=== PATIENT | female | born 1985 | race African-American/Black ===

== ENCOUNTER 2018-11-17 10:21 | Outpatient (CLI) | payer MEDICAID ==
--- NOTE | 2018-11-17 10:45 | RAD ---
FEXAM: Chest PA and lateral: HISTORY: Cough. Weight loss. Achalasia. COMPARISON: none FINDINGS: There is an irregularly shaped nodular opacity overlying the right lower lung measuring up to 1.6 cm. Lung ames otherwise clear. Vascularity is normal. There is abnormal density in the right paratracheal region. This may be the result of the stated zuleima lasia although mass or adenopathy not excluded. Osseous structures are unremarkable. IMPRESSION: 1. Nodular opacity right lower lung 2. Abnormal density right paratracheal region Recommend further evaluation with chest CT
== END 2018-11-17 10:22 | disposition home or self-care (01) ==
LOC: BICRAD 10:21
PROVIDERS: ATTEND Physician Assistant Medical
DX: K22.0 Achalasia of cardia (principal); R63.4 Abnormal weight loss; R05 Cough; J98.4 Other disorders of lung
CPT/HCPCS: 71046

== ENCOUNTER 2018-11-20 11:22 | Emergency (ER) | payer MEDICAID ==
[2018-11-20 11:58] LABS: #Eosinphils 0.1 thou/uL (0.0-0.7); #Monocytes 0.4 thou/uL (0.11-0.59); #Neutrophils 3.6 thou/uL (1.40-6.50); %Basophils 0.4 % (0.0-1.0); %Eosinophils 2.3 % (0.0-10.0); %Monocytes 7.4 % (0.0-10.0); Hemoglobin 12.1 g/dL (12.0-16.0); Mean Corpuscular HGB CONC 32.5 g/dL (32.0-36.0); Mean Corpuscular Hemoglobin 28.9 pg (27.0-31.0); Mean Corpuscular Volume 88.9 fL (78.0-98.0); Mean Platelet Volume 8.5 fL (7.4-10.4); Platelet Count 137 thou/uL (130-400); RBC Distribution Width 13.1 % (11.5-14.5); White Blood Cell (WBC) Count 5.1 thou/uL (4.8-10.8)
[2018-11-20 12:17] LABS: ALT (SGPT) 11 U/L (8-55); AST (SGOT) 14 U/L (5-34); Albumin 4.1 g/dL (3.5-5.0); Alkaline Phosphatase 66 U/L (40-150); Anion Gap 10 mmol/L (10-20); BUN (Urea Nitrogen) 12 mg/dL (7.0-18.7); Bilirubin, Total 0.7 mg/dL (0.2-1.2); Calc. Creatinine Clearance 0 mL/min (70-130); Calcium 9.1 mg/dL (7.8-10.44); Carbon Dioxide 30 mmol/L (22-29); Chloride 106 mmol/L (98-107); Estimated GFR-MDRD Greater than 90; Globulin 3.6 g/dL (2.4-3.5); Glucose 72 mg/dL (70-105); Protein, Total 7.7 g/dL (6.0-8.3); Sodium 143 mmol/L (136-145)
[2018-11-20 12:25] LABS: Potassium 2.9 mmol/L (3.5-5.1)
[2018-11-20] MEDS ORDERED: Potassium Chloride 20 MEQ/100 ML PREMIX BAG ONE (13:14)
[2018-11-20] MEDS ORDERED: Potassium Chloride 20 MEQ/100 ML PREMIX BAG IVPB SCH (13:30)
== END 2018-11-20 15:34 | disposition home or self-care (01) ==
LOC: ERS 11:22
DX: K22.0 Achalasia of cardia (principal); J45.909 Unspecified asthma, uncomplicated
CPT/HCPCS: 36415; 80053; 85025; 93005; 96365; 96366; J3480

== ENCOUNTER 2018-12-15 12:36 | Outpatient (CLI) | payer OTHER ==
[2018-12-15] MEDS ORDERED: Iopamidol 370 76% 100 ML VIAL ONE (13:42)
--- NOTE | 2018-12-15 14:23 | CT ---
PRE AND POSTCONTRAST ENHANCED CT IMAGES ABDOMEN AND PELVIS: HISTORY: Achalasia. TECHNIQUE: Pre and postcontrast enhanced CT images of the abdomen and pelvis obtained before and after administr ation of IV contrast and after administration of oral contrast. FINDINGS: There is marked dilatation of the entire esophagus. There is an area of marked caliber change at the gastroesophageal junction. Contrast does pass into the stomach and small bowel. No evidence of mediastinal, axillary, or hilar lymphadenopathy seen. Areas of patchy airspace opacities seen in the lingula, lateral aspect of the right middle lobe and b oth lung bases. These may represent possible aspiration. No evidence of periaortic lymphadenopathy seen. The liver, spleen, gallbladder, and pancreas are unremarkable. No dilated loops of bowel seen. Severe L3-4 intervertebral disc degenerative changes seen. Bilateral L3 pars interarticularis defects seen. IMPRESSION: 1. Marked achalasia. 2. Patchy areas of lung parenchymal opacities compatible with possible aspiration. Transcribed Date/Time: 12/15/2018 2:38 PM
== END 2018-12-15 12:37 | disposition home or self-care (01) ==
LOC: BICCT 12:36
PROVIDERS: ATTEND Physician Assistant Medical
DX: K22.0 Achalasia of cardia (principal); R63.4 Abnormal weight loss; R05 Cough; R91.8 Other nonspecific abnormal finding of lung field
CPT/HCPCS: 71270; 74170; Q9967

== ENCOUNTER 2018-12-18 13:16 | Outpatient (CLI) | payer OTHER ==
--- NOTE | 2018-12-18 15:36 | RAD ---
Exam: Barium swallow: HISTORY: Achalasia, excessive weight loss, cough FINDINGS: Patient was initially given a barium tablet to swallow in the upright position. Following this patien t was given thin barium to drink. There is a very markedly dilated esophagus from the level of the distal esophagus all away up to the cervical esophagus consistent with severe achalasia. In addition to the barium given, the patient was given approximately 16 ounces of water to drink in the upright position. During the first 15 minutes of the examination the barium tablet did not pass. The patient was moved from the table and returned 45 minutes later, at that time which would be an hour from the initial swallowing of the barium tablet the barium tablet had passed and was no longer seen in th e distal esophagus, only a small amount of residual barium was seen in the distal esophagus. The stomach showed considerable secretions. IMPRESSION: Evidence of very severe achalasia. The barium tablet did not pass in the first 15 minutes but did pas s by 1 hour.
== END 2018-12-18 13:17 | disposition home or self-care (01) ==
LOC: RAD 13:16
PROVIDERS: ATTEND Physician Assistant Medical
DX: K22.0 Achalasia of cardia (principal); R05 Cough; R63.4 Abnormal weight loss
CPT/HCPCS: 74220

== ENCOUNTER 2018-12-22 14:00 | Observation (INO) | payer OTHER ==
[2018-12-22] MEDS ORDERED: Acetaminophen 500 MG TAB ONE (15:37)
[2018-12-22] MEDS ORDERED: Ondansetron PF 4 MG/2 ML Vial ONE ×2 (15:37→18:10)
--- NOTE | 2018-12-22 15:51 | RAD ---
CHEST 1 VIEW PORTABLE: HISTORY: Fever. Known achalasia. FINDINGS: Minimal patchy parenchymal changes noted in the left lower lobe, new from prior 12/18/2018 study jaron poe concern for minimal pneumonia or possible aspiration. Mild increased markings in the right base ap pear stable. Heart size is normal. The markedly dilated esophagus seen on the prior study has decre ased in size. IMPRESSION: Minimal new patchy parenchymal changes in the left lower lobe possibly representing mild aspiration o r pneumonia/pneumonitis. Correlate clinically. Consider short-term followup for clearing or stabili ty. The previously noted very markedly dilated esophagus has decreased in size since the prior 019 chest associated with the barium swallow. POS: [facility]
[2018-12-22 15:58] LABS: #Eosinphils 0.1 thou/uL (0.0-0.7); #Lymphocytes 0.5 thou/uL (1.20-3.40); #Monocytes 0.4 thou/uL (0.11-0.59); #Neutrophils 3.1 thou/uL (1.40-6.50); %Basophils 0.3 % (0.0-1.0); %Eosinophils 2.5 % (0.0-10.0); %Lymphocytes 12.8 % (21.0-51.0); %Monocytes 8.6 % (0.0-10.0); %Neutrophils 75.9 % (42.0-75.0); Hemoglobin 11.7 g/dL (12.0-16.0); Mean Corpuscular HGB CONC 32.3 g/dL (32.0-36.0); Mean Corpuscular Hemoglobin 28.5 pg (27.0-31.0); Mean Corpuscular Volume 88.3 fL (78.0-98.0); Mean Platelet Volume 8.7 fL (7.4-10.4); Platelet Count 119 thou/uL (130-400); RBC Distribution Width 13.5 % (11.5-14.5); Red Blood Cell (RBC) Count 4.09 mill/uL (4.20-5.40); White Blood Cell (WBC) Count 4.1 thou/uL (4.8-10.8)
[2018-12-22 16:02] LABS: ALT (SGPT) 13 U/L (8-55); AST (SGOT) 19 U/L (5-34); Albumin 3.9 g/dL (3.5-5.0); Alkaline Phosphatase 69 U/L (40-150); Anion Gap 11 mmol/L (10-20); BUN (Urea Nitrogen) 11 mg/dL (7.0-18.7); Bilirubin, Total 0.4 mg/dL (0.2-1.2); Calc. Creatinine Clearance 0 mL/min (70-130); Carbon Dioxide 28 mmol/L (22-29); Chloride 104 mmol/L (98-107); Estimated GFR-MDRD Greater than 90; Globulin 3.6 g/dL (2.4-3.5); Glucose 83 mg/dL (70-105); Potassium 3.2 mmol/L (3.5-5.1); Protein, Total 7.5 g/dL (6.0-8.3); Sodium 140 mmol/L (136-145)
--- NOTE | 2018-12-22 16:28 | PDOC.FPRHP ---
Addendum entered and electronically signed by Shamir Leiva DO 12/22/18 17:25 : Original Note: - History of Present Illness Chief Complaint: Fever History of Present Illness: 33 yo F with PMH achalasia presents to ED from Dr. Lin's office for fever. Reports pain that began last night, felt like any PO intake was "stuck" in chest. She woke up and didnt feel well. Developed fever/chills. Reports cough, allergies, headache. Has decreased PO intake due to chronic achalasia diagnosed 10/2017. Has tolerated sprite today. Seeing GI in outpatient setting and is preparing for procedures and surgery in [place]. No sick contacts. ED Course: Tylenol 1g Levaquin 750mg Zofran 8mg 1 L bolus - Allergies/Adverse Reactions Allergies Allergy/AdvReac Type Severity Reaction Status Date / Time cetirizine [From Zyrtec] Allergy Verified 12/22/18 20:25 diphenhydramine Allergy Verified 12/22/18 20:25 [From Benadryl] ibuprofen Allergy Verified 12/22/18 20:25 NSAIDS (Non-Steroidal Allergy Verified 12/22/18 20:25 Anti-Inflamma - History PMHx: seasonal allergies, achalasia, asthma, eczema, anemia, Vit D deficiency PSHx: 2016, D&C FHx: asthma, HTN Social: No tobacco, alcohol, drug use. - Review of Systems General: reports: fever/chills, weight/appetite/sleep changes Eyes: denies: vision changes ENT: reports: rhinorrhea Respiratory: reports: cough, congestion Cardiovascular: denies: chest pain, palpitation Gastrointestinal: denies: nausea Genitourinary: denies: dysuria, discharge Skin: denies: rashes, lesions Musculoskeletal: reports: pain Neurological: reports: numbness Psychological: denies: anxiety - Vital signs BP: 115/66 HR: 91 RR: 16 Tmax: 103.0 Pox: 100% on ra Wt: 74kg - Physical Exam Constitutional: NAD, awake, alert and oriented HEENT: normocephalic and atraumatic, PERRLA, EOMI, conjunctiva clear, grossly normal vision, grossly normal hearing, MMM Neck: trachea midline, no JVD Chest: no-tender to palpation Heart: RRR, normal S1/S2, no murmurs/rubs/gallops, no edema Lungs: CTAB, no respiratory distress, no wheezing Abdomen: soft, non-tender, bowel sounds present Musculoskeletal: normal structure, normal tone Neurological: no focal deficit Skin: no rash/lesions Heme/Lymphatic: no unusual bruising or bleeding Psychiatric: normal mood and affect FMR H&P: Results - Labs Result Diagrams: 12/22/18 15:00 12/22/18 15:00 Lab results: WBC 4.1 thou/uL (4.8-10.8) L 12/22/18 15:00 Hgb 11.7 g/dL (12.0-16.0) L 12/22/18 15:00 Hct 36.1 % (36.0-47.0) 12/22/18 15:00 MCV 88.3 fL (78.0-98.0) 12/22/18 15:00 Plt Count 119 thou/uL (130-400) L 12/22/18 15:00 Neutrophils % 75.9 % (42.0-75.0) H 12/22/18 15:00 Sodium 140 mmol/L (136-145) 12/22/18 15:00 Potassium 3.2 mmol/L (3.5-5.1) L 12/22/18 15:00 Chloride 104 mmol/L (98-107) 12/22/18 15:00 Carbon Dioxide 28 mmol/L (22-29) 12/22/18 15:00 BUN 11 mg/dL (7.0-18.7) 12/22/18 15:00 Creatinine 0.69 mg/dL (0.6-1.1) 12/22/18 15:00 Glucose 83 mg/dL (70-105) 12/22/18 15:00 Lactic Acid 0.6 mmol/L (0.5-2.2) 12/22/18 15:32 Calcium 9.0 mg/dL (7.8-10.44) 12/22/18 15:00 Total Bilirubin 0.4 mg/dL (0.2-1.2) 12/22/18 15:00 AST 19 U/L (5-34) 12/22/18 15:00 ALT 13 U/L (8-55) 12/22/18 15:00 Alkaline Phosphatase 69 U/L (40-150) 12/22/18 15:00 Serum Total Protein 7.5 g/dL (6.0-8.3) 12/22/18 15:00 Albumin 3.9 g/dL (3.5-5.0) 12/22/18 15:00 - Radiology Interpretation Chest x-ray Status: image reviewed by me, report reviewed by me (Minimal new patchy parenchymal changes in the left lower lobe possibly representing mild aspiration o r pneumonia/pneumonitis) FMR H&P: A/P - Problem List (1) CAP (community acquired pneumonia) Current Visit: Yes Status: Acute Code(s): J18.9 - PNEUMONIA, UNSPECIFIED ORGANISM (2) Achalasia Current Visit: Yes Status: Acute Code(s): K22.0 - ACHALASIA OF CARDIA - Plan 33 yo F presents with one day history of fever an admitted for observation for pneumonia and dehydration. CAP - CXR minimal new patchy parenchymal changes in LLL posisbly representing mild aspiration or pneumonia/pneumonitis -Start unasyn and transition to augmentin in AM -PRN tylenol for fever -Pending Flu, procal Fever -Likely due to above, pending UA Mild dehydration - s/p 1L in ED - continue LR@ 120ml/hr Hypokalemia - replaced in ED -BMP in AM Achalasia - chronic problem, getting outpatient workup by Dr. Lin PCP: FREDERIC Walsh Diet: Full liquid Family: none at bedside Code: FULL Dispo: admit to medical for observation, expected stay <48hrs Case discussed with Dr. Jones FMR H&P: Upper Level - Pertinent history HPI Pt is a 33 y/o F with Achalasia presenting for fever. Was send by her GI office after she developed fever, chills this afternoon. Associated bone pain and chills, cough. She denies sputum production or sick contacts. Achalasia surgery pending out of town, but following closely with GI. She initially presented to ED febrile and tachycardic at 91. REVIEW OF SYSTEMS: Gen: fever, chills, Resp: cough, no SOB, no wheeze Card: some upper chest pain, no palpitations GI: pos dysphagia, no appetite change, no diarrhea or constipation, no nausea/ vomiting, no blood in stool : no dysuria, no hematuria, no incontinence, no change in frequency - Pertinent findings PHYSICAL EXAMINATION: General: NAD, alert and oriented x3. NAD Neck: Full ROM. Heart/Cardiovascular System: No r/m/g. RRR. Lungs/Respiratory System: clear to auscultation bilaterally. No increased work of breathing. Room air. Extremities: Warm extremities. No cyanosis or edema. Neuro: No gross deficits appreciated. Psychiatry: Awake, Alert and cooperative with exam Skin: No lesions, rashes, or ulcers - Plan Date/Time: 12/22/18 1626 I, Shamir Leiva, have evaluated this patient and agree with findings/plan as outlined by fall internship resident. Pertinent changes/additions are listed here. PROBLEM LISTANDPLAN: # Community Acquired PNA- Concern for aspiration as she has comorbid achalasia although CXR has possible infiltrate on LLL. CURB-65 is 0. Pt tolerating fluids and appears euvolemic. Plan to give IVF overnight, antipyretics for fever control, and will empirically cover for aspiration PNA with IV antibiotics and transition to PO. # Achalasia- Follows with GI and surgery pending. Continue liquid diet. # Hypokalemia- Replete and recheck Dispo: anticipate AM discharge Addendum - Attending - Attending Attestation Date/Time: 12/23/18 0005 I personally evaluated the patient and discussed the management with Dr. Chapa and [place]. I agree with the History, Examination, Assessment and Plan documented above with any addition or exceptions noted below. Nonfocal exam for me. Monitor overnight.
[2018-12-22] MEDS ORDERED: Acetaminophen 325 MG/10.15 ML UDCUP ONE (16:52)
[2018-12-22 18:41] LABS: Bilirubin Negative (Negative); Blood, Urine Negative (Negative); Clarity CLEAR (Clear); Glucose, Urine (Dipstick) Negative (Negative); Leukocyte Negative (Negative); Nitrite Negative (Negative); Protein, Urine (Dipstick) Negative (Neg-Trace); Specific Gravity, Urine 1.027 (1.002-1.036)
[2018-12-22 18:45] LABS: Pregnancy Test - Urine (BHCG) Negative (Negative); Pregu Control Background? CLEAR/WHITE (CLR/WHITE); Pregu Control Bar Appear? YES (CONTROL BAR); Specific Gravity 1.027 (1.002-1.036)
[2018-12-22] MEDS ORDERED: Acetaminophen 650 MG/20.3 ML UDCUP PO PRN (19:01)
[2018-12-22] MEDS ORDERED: Ondansetron PF 4 MG/2 ML Vial IVP PRN (19:01)
[2018-12-22] MEDS ORDERED: Ampicillin/Sulbactam 3 GM in Sodium Chloride 0.9% 100 ML IVPB SCH (19:15)
[2018-12-22 20:23] VITALS: BMI 23.5
[2018-12-22] MEDS: Lactated Ringer's 1,000 ML IV SCH (21:37)
[2018-12-22] MEDS: Famotidine/PF 20 mg/2ml Vial SLOW IVP SCH (21:37)
[2018-12-23] MEDS ORDERED: Ampicillin/Sulbactam 3 GM in Sodium Chloride 0.9% 100 ML IVPB SCH (03:00)
--- NOTE | 2018-12-23 06:19 | PDOC.FM ---
- Subjective Subjective: Pt denies fever or chills overnight. She tolerated PO liquids overnight. She reports she is ready to go home to see her baby. She denies nausea, vomiting, or diarrhea. - Objective MAR Reviewed: Yes Vital Signs & Weight: Vital Signs (12 hours) Temp Pulse Resp BP BP BP Pulse Ox 12/23/18 04:00 97.8 F 57 L 20 102/69 95 12/23/18 00:00 98.0 F 72 20 93/60 95 12/22/18 20:21 98.9 F 89 18 97/61 97/61 96 Weight Weight 74.389 kg I&O: 12/21/18 12/22/18 12/23/18 06:59 06:59 06:59 Intake Total 201 Balance 201 Result Diagrams: 12/22/18 15:00 12/22/18 15:00 Phys Exam - Physical Examination Constitutional: NAD HEENT: moist MMs Neck: no JVD, full ROM Respiratory: no wheezing Left sided crackles, good air movement Cardiovascular: RRR, no significant murmur Gastrointestinal: soft, non-tender, no distention, positive bowel sounds Musculoskeletal: no edema, pulses present Neurological: normal sensation, moves all 4 limbs Psychiatric: A&O x 3 Skin: cap refill <2 seconds Dx/Plan (1) CAP (community acquired pneumonia) Code(s): J18.9 - PNEUMONIA, UNSPECIFIED ORGANISM Status: Acute (2) Achalasia Code(s): K22.0 - ACHALASIA OF CARDIA Status: Acute - Plan Plan: 33 yo F presents with one day history of fever an admitted for observation for pneumonia and dehydration. CAP - CXR minimal new patchy parenchymal changes in LLL possibly representing mild aspiration or pneumonia/pneumonitis -Start unasyn and transition to augmentin in AM -PRN tylenol for fever -Flu negative, procal negative Fever -Likely due to above, pending UA Mild dehydration - s/p 1L in ED - continue LR@ 120ml/hr Hypokalemia - replaced in ED -BMP in AM Achalasia - chronic problem, getting outpatient workup by Dr. Lin
[2018-12-23] MEDS: Famotidine/PF 20 mg/2ml Vial SLOW IVP SCH (07:55)
[2018-12-23] MEDS: Lactated Ringer's 1,000 ML IV SCH (07:56)
[2018-12-23 08:00] VITALS: BP 98/62; TEMP 98
[2018-12-23] MEDS ORDERED: Amoxicillin/Potassium Clav 250 mg/5 ml Oral Suspension PO SCH (09:00)
[2018-12-23 09:35] LABS: BUN (Urea Nitrogen) 8 mg/dL (7.0-18.7); Calc. Creatinine Clearance 149 mL/min (70-130); Carbon Dioxide 16 mmol/L (22-29); Chloride 107 mmol/L (98-107); Estimated GFR-MDRD Greater than 90; Glucose 74 mg/dL (70-105); Potassium 4.2 mmol/L (3.5-5.1); Sodium 135 mmol/L (136-145)
[2018-12-23 12:43] LABS: Anion Gap 16 mmol/L (10-20)
--- NOTE | 2018-12-23 14:47 | PRG ---
DATE OF SERVICE: 12/23/2018 Ms. Moran looks and feels much better this morning. She will be discharged on oral antibiotics to complete 10-day therapy for pneumonia. Job ID: [id number]
--- NOTE | 2018-12-24 11:34 | DIS ---
DATE OF ADMISSION: 12/22/2018 DATE OF DISCHARGE: 12/23/2018 ADMITTING ATTENDING: Roger Jones MD. DISCHARGE ATTENDING: Dr. Parveen Irving. RESIDENT: Fabian Chapa DO. CONSULT: None. PROCEDURES: X-ray, minimal new patchy parenchymal changes in the left lower lobe, possibly representing mild aspiration versus pneumonia versus pneumonitis. PRIMARY DIAGNOSES: Aspiration pneumonitis, mild dehydration, hypokalemia. SECONDARY DIAGNOSIS: Achalasia. DISCHARGE MEDICATIONS: 1. Augmentin 800 mg p.o. b.i.d. for 5 days. 2. Vitamin B12 500 mcg p.o. daily. 3. Flonase 1 spray per naris daily. 4. Claritin 10 mg p.o. daily. 5. Multivitamin one p.o. daily. DISCONTINUED MEDICATIONS: None. BRIEF HISTORY OF PRESENT ILLNESS/HOSPITAL COURSE: This is a 33-year-old female with past medical history of achalasia who presented from Dr. Lin's office with a fever. She states the fever started this morning. In addition, she had a pain in her chest last night, felt like any p.o. intake was getting stuck. She reports seen GI outpatient and having workup for her achalasia. The patient reports possibly choking or aspirating on said p.o. intake that got stuck. The patient admitted to the hospital and treated with Unasyn, switched to Augmentin for aspiration pneumonia coverage. The following day, the patient was much improved after receiving IV fluids and was able to tolerate some oral intake, primarily fluids. The patient's GI doctor, Dr. Lin was consulted and he denied any studies needed to be done during this hospital stay and reported the patient needs to follow up outpatient. DISPOSITION: Stable. DISCHARGE INSTRUCTIONS: 1. Location: Home. 2. Diet: Full liquids, advance as tolerated. 3. Activities: As tolerated. 4. Follow up with [place] [facility] physicians in 1-[address] Lin as instructed. Job ID: [id number]
== END 2018-12-23 13:43 | disposition home or self-care (01) ==
LOC: ERS 14:00 → T4-A 20:16 → INTOOBSV 20:16
PROVIDERS: ADMIT Family Medicine; ATTEND Family Medicine
DX: J69.0 Pneumonitis due to inhalation of food and vomit (principal); K22.0 Achalasia of cardia; E86.0 Dehydration; J45.909 Unspecified asthma, uncomplicated; D64.9 Anemia, unspecified; E87.6 Hypokalemia; Z88.8 Allergy status to other drugs, medicaments and biological substances
CPT/HCPCS: 36415; 71045; 80048; 80053; 81003; 81025; 83605; 84145; 85025; 87040; 87804; 93005; 96361; 96365; 96366; 96367; G0378; J0295; J1956; J2405; J3490; S0028

== ENCOUNTER → 2019-01-07 | Day surgery (SDC) | payer OTHER | LOC: ENDO/OP 08:00 | PROVIDERS: ATTEND Internal Medicine Gastroenterology | DX: K22.0 Achalasia of cardia (principal); R63.4 Abnormal weight loss; Z88.6 Allergy status to analgesic agent; Z88.8 Allergy status to other drugs, medicaments and biological substances | CPT/HCPCS: 91010 ==

== ENCOUNTER 2019-04-19 21:56 | Emergency (ER) | payer OTHER ==
[2019-04-19 22:27] LABS: #Eosinphils 0.3 thou/uL (0.0-0.7); #Lymphocytes 1.2 thou/uL (1.20-3.40); #Monocytes 0.4 thou/uL (0.11-0.59); #Neutrophils 1.2 thou/uL (1.40-6.50); %Basophils 0.8 % (0.0-1.0); %Eosinophils 9.3 % (0.0-10.0); %Lymphocytes 39.8 % (21.0-51.0); %Monocytes 11.2 % (0.0-10.0); %Neutrophils 38.8 % (42.0-75.0); Hemoglobin 11.1 g/dL (12.0-16.0); Mean Corpuscular HGB CONC 33.2 g/dL (32.0-36.0); Mean Corpuscular Hemoglobin 29.5 pg (27.0-31.0); Mean Corpuscular Volume 88.9 fL (78.0-98.0); Mean Platelet Volume 8.2 fL (7.4-10.4); Platelet Count 134 thou/uL (130-400); Red Blood Cell (RBC) Count 3.77 mill/uL (4.20-5.40); White Blood Cell (WBC) Count 3.1 thou/uL (4.8-10.8)
[2019-04-19 22:47] LABS: ALT (SGPT) 61 U/L (8-55); AST (SGOT) 51 U/L (5-34); Albumin 3.5 g/dL (3.5-5.0); Alkaline Phosphatase 79 U/L (40-150); Anion Gap 7 mmol/L (10-20); BUN (Urea Nitrogen) 5 mg/dL (7.0-18.7); Bilirubin, Total 0.3 mg/dL (0.2-1.2); Calc. Creatinine Clearance 0 mL/min (70-130); Calcium 8.9 mg/dL (7.8-10.44); Carbon Dioxide 31 mmol/L (22-29); Chloride 100 mmol/L (98-107); Estimated GFR-MDRD Greater than 90; Globulin 3.4 g/dL (2.4-3.5); Glucose 81 mg/dL (70-105); Lipase 20 U/L (8-78); Potassium 4.4 mmol/L (3.5-5.1); Protein, Total 6.9 g/dL (6.0-8.3); Sodium 134 mmol/L (136-145)
[2019-04-19 23:09] LABS: BHCG - Serum Negative (NEGATIVE); Pregs Control Background? CLEAR/WHITE (CLR/WHITE); Pregs Control Bar Appear? YES (CONTROL BAR)
[2019-04-19] MEDS ORDERED: traMADol HCl 50 MG TAB ONE (23:23)
[2019-04-19] MEDS ORDERED: Ibuprofen 200 MG TAB ONE (23:23)
--- NOTE | 2019-04-19 23:50 | CT ---
CT LUMBAR SPINE WITHOUT CONTRAST: History: Back pain. FINDINGS/IMPRESSION: L3-4 intervertebral disc degenerative changes and bilateral L4-5 articularis defect noted on the exam of 12-15-18 are again seen and essentially unchanged. No acute fracture or subluxation is identified. There is a broad based disc bulge causing left neural foraminal stenosis at l3-4 level. There is als o a broad based disc bulge at the L5-S1 level. POS: [facility]
== END 2019-04-19 23:59 | disposition home or self-care (01) ==
LOC: ERS 21:56
DX: M51.36 Other intervertebral disc degeneration, lumbar region (principal); D72.819 Decreased white blood cell count, unspecified; D70.9 Neutropenia, unspecified; J45.909 Unspecified asthma, uncomplicated; Z79.899 Other long term (current) drug therapy
CPT/HCPCS: 36415; 72131; 80053; 83690; 84703; 85025

== ENCOUNTER 2019-04-20 23:34 | Emergency (ER) | payer OTHER ==
[2019-04-21 00:20] LABS: #Eosinphils 0.3 thou/uL (0.0-0.7); #Lymphocytes 1.4 thou/uL (1.20-3.40); #Monocytes 0.4 thou/uL (0.11-0.59); #Neutrophils 1.5 thou/uL (1.40-6.50); %Basophils 0.6 % (0.0-1.0); %Eosinophils 7.6 % (0.0-10.0); %Lymphocytes 39.5 % (21.0-51.0); %Monocytes 10.5 % (0.0-10.0); %Neutrophils 41.8 % (42.0-75.0); Hemoglobin 10.7 g/dL (12.0-16.0); Mean Corpuscular HGB CONC 32.6 g/dL (32.0-36.0); Mean Corpuscular Hemoglobin 29.2 pg (27.0-31.0); Mean Corpuscular Volume 89.6 fL (78.0-98.0); Platelet Count 158 thou/uL (130-400); RBC Distribution Width 13.1 % (11.5-14.5); Red Blood Cell (RBC) Count 3.65 mill/uL (4.20-5.40); White Blood Cell (WBC) Count 3.6 thou/uL (4.8-10.8)
[2019-04-21 00:44] LABS: ALT (SGPT) 49 U/L (8-55); AST (SGOT) 42 U/L (5-34); Albumin 3.4 g/dL (3.5-5.0); Alkaline Phosphatase 79 U/L (40-150); Anion Gap 8 mmol/L (10-20); BUN (Urea Nitrogen) 9 mg/dL (7.0-18.7); Bilirubin, Total 0.3 mg/dL (0.2-1.2); CK (CPK) 46 U/L (29-168); Calc. Creatinine Clearance 0 mL/min (70-130); Carbon Dioxide 28 mmol/L (22-29); Chloride 101 mmol/L (98-107); Estimated GFR-MDRD Greater than 90; Globulin 3.1 g/dL (2.4-3.5); Glucose 98 mg/dL (70-105); Potassium 4.4 mmol/L (3.5-5.1); Protein, Total 6.5 g/dL (6.0-8.3); Sodium 133 mmol/L (136-145)
[2019-04-21 01:01] LABS: Free T4 (Free Thyroxine) 0.97 ng/dL (0.70-1.48); Thyroid Stimulating Hormone 1.8637 uIU/mL (0.35-4.94)
[2019-04-21 01:13] LABS: Bacteria/HPF 1+ HPF (None Seen); Bilirubin Negative (Negative); Blood, Urine 1+ (Negative); Clarity Clear (Clear); Glucose, Urine (Dipstick) Normal (Negative); Leukocyte 25 Leu/uL (Negative); Nitrite Negative (Negative); Protein, Urine (Dipstick) 20 mg/dL (Neg-Trace); RBC/HPF 21-50 HPF (0-3); Squamous Epithelial 0-3 HPF (0-3); Urobilinogen Normal mg/dL (Less than 2)
== END 2019-04-21 01:12 | disposition home or self-care (01) ==
LOC: ERS 23:34
DX: E87.1 Hypo-osmolality and hyponatremia (principal); E77.8 Other disorders of glycoprotein metabolism; J45.909 Unspecified asthma, uncomplicated; Z79.899 Other long term (current) drug therapy
CPT/HCPCS: 36415; 80053; 81003; 81015; 82550; 84439; 84443; 85025; 99283

== ENCOUNTER 2019-05-07 09:27 | Emergency (ER) | payer OTHER ==
[2019-05-07 10:17] LABS: #Eosinphils 0.6 thou/uL (0.0-0.7); #Lymphocytes 1.1 thou/uL (1.20-3.40); #Monocytes 0.3 thou/uL (0.11-0.59); #Neutrophils 1.2 thou/uL (1.40-6.50); %Basophils 0.4 % (0.0-1.0); %Eosinophils 17.3 % (0.0-10.0); %Lymphocytes 34.5 % (21.0-51.0); %Monocytes 10.6 % (0.0-10.0); %Neutrophils 37.3 % (42.0-75.0); Hemoglobin 10.3 g/dL (12.0-16.0); Mean Corpuscular HGB CONC 33.3 g/dL (32.0-36.0); Mean Corpuscular Hemoglobin 30.2 pg (27.0-31.0); Mean Corpuscular Volume 90.9 fL (78.0-98.0); Mean Platelet Volume 7.6 fL (7.4-10.4); Platelet Count 175 thou/uL (130-400); RBC Distribution Width 13.8 % (11.5-14.5); Red Blood Cell (RBC) Count 3.42 mill/uL (4.20-5.40); White Blood Cell (WBC) Count 3.2 thou/uL (4.8-10.8)
--- NOTE | 2019-05-07 10:31 | RAD ---
XR Chest 1 View Portable History: Unresponsive patient Comparison: Radiograph December 22, 2017 Findings: Lungs are clear. No pneumothorax or effusion. Cardiac silhouette and mediastinal contours a re within normal limits. Interval resolution left basilar airspace opacity. Impression: No acute intrathoracic abnormality. Interval resolution left basilar opacity.
[2019-05-07 10:50] LABS: ALT (SGPT) 36 U/L (8-55); AST (SGOT) 32 U/L (5-34); Albumin 3.4 g/dL (3.5-5.0); Alkaline Phosphatase 87 U/L (40-150); Anion Gap 12 mmol/L (10-20); BUN (Urea Nitrogen) 13 mg/dL (7.0-18.7); Bilirubin, Total 0.2 mg/dL (0.2-1.2); Calc. Creatinine Clearance 0 mL/min (70-130); Calcium 8.4 mg/dL (7.8-10.44); Carbon Dioxide 27 mmol/L (22-29); Chloride 104 mmol/L (98-107); Estimated GFR-MDRD Greater than 90; Globulin 2.8 g/dL (2.4-3.5); Glucose 88 mg/dL (70-105); Potassium 4.1 mmol/L (3.5-5.1); Protein, Total 6.2 g/dL (6.0-8.3); Sodium 139 mmol/L (136-145)
[2019-05-07 10:54] LABS: Bilirubin Negative (Negative); Blood, Urine Negative (Negative); Clarity Clear (Clear); Glucose, Urine (Dipstick) Normal (Negative); Leukocyte Negative Leu/uL (Negative); Nitrite Negative (Negative); Protein, Urine (Dipstick) Negative (Neg-Trace); Urobilinogen Normal mg/dL (Less than 2)
[2019-05-07 11:07] LABS: Amphetamine Not Detected (NotDetected); Barbiturates Screen Not Detected (NotDetected); Benzodiazepine Screen Not Detected (NotDetected); Cocaine Metabolite Screen Not Detected (NotDetected); Medtox Control Line Valid? VALID (VALID); Medtox Reader # READER 4; Methadone Not Detected (NotDetected); Methamphetamine Not Detected (NotDetected); Opiate Screen Not Detected (NotDetected); Oxycodone Screen Not Detected (NotDetected); Phencyclidine (PCP) Not Detected (NotDetected); THC/Cannabinoid Screen Not Detected (NotDetected); Tricyclic Screen Not Detected (NotDetected)
[2019-05-07 12:34] LABS: Base Excess-Venous 2.7 mmol/L (-2.0 to 3.0); Bicarbonate (HCO3v) 26.8 mmol/L (22.0-28.0); CO2 Tension (PvCO2) 38.7 mmHg (40.0-50.0); Calcium, Ionized 1.04 mmol/L (See Comments:); Chloride 106 mmol/L (98-107); Hemoglobin - Calc 11.1 g/dL (12.0-16.0); Sodium 140 mmol/L (138-145); vO2 Saturation-calc 71.8 % (60.0-85.0)
== END 2019-05-07 14:12 | disposition home or self-care (01) ==
LOC: ERS 09:27
DX: R53.1 Weakness (principal); J45.909 Unspecified asthma, uncomplicated
CPT/HCPCS: 36415; 71045; 80053; 80306; 81003; 82330; 82375; 82803; 85025; 93005; 99285

== ENCOUNTER 2019-05-16 21:45 | Emergency (ER) | payer OTHER ==
[2019-05-16 23:45] LABS: Hemoglobin 9.4 g/dL (12.0-16.0); Mean Corpuscular HGB CONC 34.3 g/dL (32.0-36.0); Mean Corpuscular Hemoglobin 30.5 pg (27.0-31.0); Mean Corpuscular Volume 89.1 fL (78.0-98.0); Mean Platelet Volume 7.7 fL (7.4-10.4); Platelet Count 148 thou/uL (130-400); RBC Distribution Width 13.7 % (11.5-14.5); Red Blood Cell (RBC) Count 3.08 mill/uL (4.20-5.40); White Blood Cell (WBC) Count 3.7 thou/uL (4.8-10.8)
[2019-05-16 23:51] LABS: ALT (SGPT) 40 U/L (8-55); AST (SGOT) 38 U/L (5-34); Albumin 3.4 g/dL (3.5-5.0); Alkaline Phosphatase 81 U/L (40-110); Anion Gap 10 mmol/L (10-20); BUN (Urea Nitrogen) 14 mg/dL (7.0-18.7); Bilirubin, Total 0.2 mg/dL (0.2-1.2); Calc. Creatinine Clearance 0 mL/min (70-130); Calcium 8.5 mg/dL (7.8-10.44); Carbon Dioxide 25 mmol/L (22-29); Chloride 109 mmol/L (98-107); Estimated GFR-MDRD Greater than 90; Globulin 2.9 g/dL (2.4-3.5); Glucose 78 mg/dL (70-105); Potassium 3.5 mmol/L (3.5-5.1); Protein, Total 6.3 g/dL (6.0-8.3); Sodium 140 mmol/L (136-145)
[2019-05-16 23:59] LABS: Eosinophils 4 % (0-10); Lymphocytes 51 % (21-51); MDiff Complete? YES; Monocytes 11 % (0-10); Neutrophil 34 % (42-75)
[2019-05-17 00:04] LABS: Bilirubin Negative (Negative); Blood, Urine Negative (Negative); Clarity Clear (Clear); Glucose, Urine (Dipstick) Normal (Negative); Leukocyte Negative Leu/uL (Negative); Nitrite Negative (Negative); Protein, Urine (Dipstick) 10 mg/dL (Neg-Trace); Urobilinogen 3 mg/dL (Less than 2)
[2019-05-17 00:23] LABS: Pregnancy Test - Urine (BHCG) Negative (Negative); Pregu Control Background? CLEAR/WHITE (CLR/WHITE); Pregu Control Bar Appear? YES (CONTROL BAR); Specific Gravity 1.033 (1.002-1.036)
== END 2019-05-17 01:05 | disposition home or self-care (01) ==
LOC: ERS 21:45
DX: I89.0 Lymphedema, not elsewhere classified (principal); J45.909 Unspecified asthma, uncomplicated
CPT/HCPCS: 36415; 80053; 81003; 81025; 83880; 85025; 99283

== ENCOUNTER 2020-09-09 10:48 | Outpatient (CLI) | payer OTHER | END 2020-09-09 10:49 | disposition home or self-care (01) | LOC: DTY/OP 10:48 | PROVIDERS: ATTEND Family Medicine | DX: Z68.43 Body mass index [BMI] 50.0-59.9, adult (principal) | CPT/HCPCS: 97802 ==